=== PATIENT | female | born 1975 ===

== ENCOUNTER → 2025-03-16 | Outpatient (REF) | LOC: M EMP 13:13 | PROVIDERS: ATTEND Family Medicine | DX: Z11.52 Encounter for screening for COVID-19 (principal) ==

== ENCOUNTER → 2025-03-16 | Outpatient (REF) | LOC: M EMP 13:10 | PROVIDERS: ATTEND Family Medicine | DX: Z11.52 Encounter for screening for COVID-19 (principal) ==